=== PATIENT | male | born 1955 | race Two or more races ===

== ENCOUNTER 2023-11-06 10:15 | Emergency (ER) | payer MEDICARE, OTHER ==
[~2023-11-06] VITALS: Ht 170.2 cm; Wt 74.2 kg
[2023-11-06 11:16] VITALS: BP 158/90; PULSE 94; RESP 18; TEMP 98.8; O2SAT 97
[2023-11-06] MEDS ORDERED: NAP500T PO (11:36)
[2023-11-06] MEDS ORDERED: CEPH500C PO (11:36)
== END 2023-11-06 11:44 | disposition home or self-care (01) ==
LOC: ER 10:18
DX: L72.8 Other follicular cysts of the skin and subcutaneous tissue (principal); Z79.899 Other long term (current) drug therapy